=== PATIENT | female | born 1990 | race African-American/Black ===

== ENCOUNTER 2018-03-04 15:24 | Inpatient (IN) | payer MEDICARE ==
[~2018-03-04] VITALS: Ht 157.5 cm; Wt 80.3 kg
--- NOTE | ~2018-03-04 | MORECARE ---
CASE MANAGEMENT DISCHARGE SUMMARY PATIENT: LAMONTE SALAZAR UNIT: [id number] ADM DATE: 03/04/18 AGE: 28 : [birth year] SEX: F ROOM/BED: D.[facility] AUTHOR: CASE, BULK RECEIVER PHYSICIAN: REFERRING PHYSICIAN: WILLY ACIN MD DATE OF SERVICE: 03/04/18 Discharge Plan Patient Name: LAMONTE SALAZAR Facility: [facility]:[place] : 1990 Planned Disposition: Home Anticipated Discharge Date: Discharge Date: Expected LOS: Initial Reviewer: [id number] Initial Review Date: 03/06/2018 Generated: 03/06/18 10:39 am DCPIA - Discharge Planning Initial Assessment Updated by [email or web address]: Edda Ibarra on 03/06/18 9:39 am * Is the patient Alert and Oriented? Yes * How many steps to enterexit or inside your home? ramp * PCP Dr. Calderon Bustillo * Pharmacy [facility] * Preadmission Environment Home with Family * ADLs Independent * Equipment None * Verbal permission to speak to the caregivers and representatives has been obtained from the patient. Yes * Community resources currently utilized None * Please name any agencies selected above. [facility] ([facility]) MWF @ 0715 * Additional services required to return to the preadmission environment? No * Can the patient safely return to the preadmission environment? Yes * Has this patient been hospitalized within the prior 30 days at any hospital? No Patient Name: LAMONTE SALAZAR Page [phone] All edits/amendments must be made on the electronic document DICTATION DATE: 03/06/18938 OVERHEAD LINE WORKER: 03/06/1839 RPT#: [id number] DC DATE: STATUS: ADM IN [facility] [address] [place] [address] END OF REPORT
--- NOTE | ~2018-03-04 | OP ---
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 OPERATION PERFORMED: Insertion of HemoSplit dialysis catheter via the left internal jugular vein under ultrasound as well as fluoroscopic guidance followed by ligation of left arm AV fistula with excision of ruptured segment. SURGEON: Morgan Kirkland MD ANESTHESIA: General endotracheal per [employer] DATABASE DEVELOPER. PREOPERATIVE NOTE: Lamonte Sandhu is a 28-year-old -[place]er female with lupus erythematosus and end-stage renal disease. She is on chronic hemodialysis in [place] on Mondays, Wednesdays, and Fridays, I believe. She is about 30 days' status right now, and during her , had worsening aneurysmal dilatation of her left arm AV fistula and it was not addressed due to her . She did not have a fistulogram until of last week at [facility], where Dr. Lang found that she had an almost total occlusion of the swing segment of her translocated basilic vein fistula. He was able to cross the stenosis with a wire and not able to cross it with the angioplasty balloon catheter that was available to him. She was referred to me and I saw her on in my office in the afternoon and I recommended that she be hospitalized, so that she go to the operating room the following morning, where I planned to do a fistulogram and try to save her fistula. At that time, she was not in danger of imminent rupture. There was no skin necrosis, although the skin over the larger and more proximal cannulation aneurysm was shiny and looked tenuous. Note, THE PATIENT IS ALLERGIC TO IODINE AND IODINATED CONTRAST and requires premedication as per protocol for iodine contrast allergies. The patient stated that she was going to pick out hand her baby at [facility] on Tuesday and did not want to go into the hospital until next week, so the best I could do at that time was schedule her for an elective operation on Tuesday. She presented however to the Emergency Room on Tuesday evening with a swollen and painful arm. On the telephone, I was told there was no active bleeding and it was my impression that she most likely thrombosed her fistula, but possibly might still have some flow and I planned to bring her back to the operating room this morning. This morning, I find the patient with some oozing of blood from an area of necrotic skin overlying the larger aneurysm. She is now obviously in danger of impending rupture and needs emergent surgery. In the OR, general endotracheal anesthesia was administered and she was prepped and draped in sterile manner. I used ultrasound guidance as well as fluoroscopy OPERATIVE REPORT [id number] LAMONTE SANDHU to insert a tunneled 23-cm HemoSplit catheter and place its tip deep in the right atrium. It was tunneled over the clavicle from the left infraclavicular space. Both lumens were accessed, aspirated, and returned blood freely. They were then flushed with saline solution and heparin locked with dilute heparin and saline solution, clamped, and capped. The catheter was sutured to the skin near the entry site with 2-0 Prolene and the cervical incision was closed with interrupted inverted 3-0 Vicryl. That incision was then sealed with Dermabond glue and Maxorb Ag and dressed with Tegaderm with Cavilon skin prep. The patient was then exposed and prepared for the second phase of the operation, which was to be ligation of her fistula. During the prep, the aneurysm ruptured and there was a brief massive hemorrhage until the surgical OR tech applied proper digital compression and quite accurately saved the patient, who could have exsanguinated in seconds. The arm was then held up and a sterile pneumatic tourniquet was applied to the upper arm, and after inflation, active bleeding from the arm ceased. A large amount of clot was expressed from the ruptured fistula, and on closer inspection, we could see there was a hole in her arm at the site of rupture, which was roughly an inch in diameter. Quite a large rupture with quite a large high pressure system beneath certainly could have led to rapid exsanguination. We completed the patient's draping and then I made an incision at the antecubital space along the old scar and exposed the translocated basilic vein and dissected down to the arterial anastomosis. There, it was ligated with #0 Vicryl. It was transected and a portion was excised. The proximal portion was backbleeding and I made an incision around the area of rupture and dissected the overlying skin from it and dissected it circumferentially, ligated it, divided it, and resected a portion. This was sent for routine pathology. The patient's wounds were irrigated with saline and dilute gentamicin solution. Additional protamine was given intraoperatively to help reduce the effects of heparin drip which she had been on overnight. The wounds were then closed with interrupted inverted 3-0 Vicryl and surgical mattie. Doppler examination demonstrated flow in the brachial artery above and below the anastomosis and at the wrist. A sterile compression dressing was applied to the patient's arm. The deflated tourniquet of course was removed. The patient then was awakened, extubated, and taken to the intensive care unit. Blood was obtained for type and crossmatch. Two units of blood were to be transfused as soon as they were available in ICU. PLAN: The patient will obviously need long-term dialysis access in a few weeks from now. When she has recovered from this episode, she should be returned to the operating room and a new graft or fistula placed in the right arm. Note, during the HemoSplit placement phase, I did examine the right internal jugular vein with ultrasound and noted it to be quite small at the level of the clavicle and I think it is nearly, if not completely, occluded or sclerotic from multiple prior tunneled central venous dialysis catheters. On the left side, the vein was quite large and did not appear to be sclerotic, although I did see some scars and I suspect she has had more than one catheter previously on that side. TRANSINT:[id number] Voice Confirmation ID: [id number] DOCUMENT ID: [id number] OPERATIVE REPORT [id number] LAMONTE SANDHU JAMES MD at 2205 CC: SEAN LANG MD [id number] DICTATION DATE: 03/05/18 1410 SENIOR SALES OPERATIONS MANAGER: 03/05/18 1646 DIS IN 03/07/18 [facility] [address] [place] [address]
[~2018-03-04 15:24] MED LIST: CATAPRES0.3 MG PO; HYDRALAZINE HCL50 MG PO; KEFLEX250 MG PO; LASIX80 MG PO; MACROBID100 MG PO; NIFEDIPINE ER90 MG PO; NORCO 10/325 TA1 TA1 PO; NORVASC5 MG PO; PHOSLO667 MG PO; PLAQUENIL200 MG PO; PLAVIX75 MG PO; PREDNISONE10 MG PO; PREDNISONE20 MG PO; PREDNISONE5 MG PO; PROCARDIA10 MG PO; RENVELA800 MG PO; ROCALTROL0.25 MCG PO; ROCALTROL0.5 MCG PO; ROCALTROL1 MCG/ML PO; SINEQUAN25 MG PO; TOPROL XL100 MG PO; TUMS500 MG; TUMS500 MG PO; TYLENOL ARTHRI650 MG PO; ULTRAM50 MG PO; VICODIN PO
[2018-03-05] VITALS (17 sets, daily range): BP systolic 124–194; BP diastolic 78–109; BMI 32.6
[2018-03-05 04:49] LABS: BASOPHILS 0.1 % (0-2); EOSINOPHILS 2.4 % (0-7); HEMATOCRIT 27.9 % (36.0-48.0); HEMOGLOBIN 9.3 g/dL (12-16); IMMATURE GRANULOCYTES 0.2 % (0-5); LYMPHOCYTES 18.2 % (15-50); MCH 28.3 pg (26.0-34.0); MCHC 33.3 g/dL (31.0-37.0); MCV 84.8 fL (80.0-100.0); MEAN PLATELET VOLUME 9.4 fL (7.4-10.4); MONOCYTES 5.6 % (2-11); NEUTROPHILS 73.5 % (40-80); PLATELET COUNT 173 10x3/uL (130-400); RBC 3.29 10x6/uL (4.00-5.40); RDW 15.4 % (11.5-14.5); WBC 8.2 10x3/uL (4.8-10.8)
[2018-03-05 05:24] LABS: ANION GAP 23.9 mmol/L (8-16); CARBON DIOXIDE 21.9 mmol/L (21.0-32.0); CREATININE - SERUM 17.8 mg/dL (0.6-1.3); MAGNESIUM - SERUM 2.6 mg/dL (1.8-2.4); POTASSIUM - SERUM 4.8 mmol/L (3.5-5.1)
[2018-03-05 05:25] LABS: CALCIUM 6.8 mg/dL (8.5-10.1)
[2018-03-05 08:22] LABS: INR 1.13 (0.85-1.17); PROTIME 14.1 SECONDS (11.6-15.0)
[2018-03-05 08:54] LABS: HEMATOCRIT 29.8 % (36.0-48.0); HEMOGLOBIN 10.1 g/dL (12-16); MCH 28.5 pg (26.0-34.0); MCHC 33.9 g/dL (31.0-37.0); MCV 84.2 fL (80.0-100.0); MEAN PLATELET VOLUME 9.9 fL (7.4-10.4); RBC 3.54 10x6/uL (4.00-5.40); RDW 15.4 % (11.5-14.5); WBC 7.3 10x3/uL (4.8-10.8)
[2018-03-05 10:34] LABS: HCG SERUM NEGATIVE (NEGATIVE)
[2018-03-05 12:34] LABS: BASOPHILS 0.1 % (0-2); EOSINOPHILS 3.3 % (0-7); HEMATOCRIT 25.2 % (36.0-48.0); HEMOGLOBIN 8.5 g/dL (12-16); IMMATURE GRANULOCYTES 0.1 % (0-5); LYMPHOCYTES 22.2 % (15-50); MCH 28.2 pg (26.0-34.0); MCHC 33.7 g/dL (31.0-37.0); MCV 83.7 fL (80.0-100.0); MEAN PLATELET VOLUME 9.9 fL (7.4-10.4); MONOCYTES 5.9 % (2-11); NEUTROPHILS 68.4 % (40-80); PLATELET COUNT 170 10x3/uL (130-400); RBC 3.01 10x6/uL (4.00-5.40); RDW 15.5 % (11.5-14.5)
[2018-03-05 15:02] LABS: HEMATOCRIT 26.8 % (36.0-48.0)
[2018-03-06] VITALS (10 sets, daily range): BP systolic 132–152; BP diastolic 75–94; Ht 157.5 cm; Wt 80.3 kg
[2018-03-06 05:55] LABS: ANION GAP 16.9 mmol/L (8-16); CALCIUM 7.7 mg/dL (8.5-10.1)
[2018-03-06 05:56] LABS: CREATININE - SERUM 11.4 mg/dL (0.6-1.3); POTASSIUM - SERUM 3.9 mmol/L (3.5-5.1)
[2018-03-06 06:49] LABS: BASOPHILS 0.1 % (0-2); EOSINOPHILS 2.5 % (0-7); HEMATOCRIT 29.7 % (36.0-48.0); IMMATURE GRANULOCYTES 0.1 % (0-5); LYMPHOCYTES 12.2 % (15-50); MCH 28.5 pg (26.0-34.0); MCHC 33.7 g/dL (31.0-37.0); MCV 84.6 fL (80.0-100.0); MEAN PLATELET VOLUME 10.2 fL (7.4-10.4); MONOCYTES 5.2 % (2-11); NEUTROPHILS 79.9 % (40-80); RBC 3.51 10x6/uL (4.00-5.40); RDW 15.3 % (11.5-14.5); WBC 7.1 10x3/uL (4.8-10.8)
[2018-03-06 06:53] LABS: PLATELET COUNT 118 10x3/uL (130-400)
[2018-03-07 04:00] VITALS: BP 123/84
[2018-03-07 06:00] LABS: BASOPHILS 0.1 % (0-2); EOSINOPHILS 2.3 % (0-7); HEMATOCRIT 30.3 % (36.0-48.0); HEMOGLOBIN 10.1 g/dL (12-16); IMMATURE GRANULOCYTES 0.2 % (0-5); LYMPHOCYTES 9.7 % (15-50); MCH 28.5 pg (26.0-34.0); MCHC 33.3 g/dL (31.0-37.0); MCV 85.6 fL (80.0-100.0); MEAN PLATELET VOLUME 10.3 fL (7.4-10.4); MONOCYTES 6.8 % (2-11); NEUTROPHILS 80.9 % (40-80); PLATELET COUNT 121 10x3/uL (130-400); RBC 3.54 10x6/uL (4.00-5.40); RDW 15.4 % (11.5-14.5); WBC 8.4 10x3/uL (4.8-10.8)
[2018-03-07 06:22] LABS: ANION GAP 14.3 mmol/L (8-16); CALCIUM 8.6 mg/dL (8.5-10.1); CARBON DIOXIDE 28.5 mmol/L (21.0-32.0); CREATININE - SERUM 9.4 mg/dL (0.6-1.3); POTASSIUM - SERUM 3.8 mmol/L (3.5-5.1)
== END 2018-03-07 11:30 | disposition home or self-care (01) | DRG 252 ==
LOC: D.ER 15:24 → D.EDHOLD 21:35 → D.M2 21:35 → D.CVICU 03-05 13:58 → D.M2 03-06 21:43
PROVIDERS: Internal Medicine Nephrology; Surgery
PROC: B2141ZZ Fluoroscopy of Right Heart using Low Osmolar Contrast (ICD-10-PCS; 2018-03-05)
PROC: 5A1D70Z Performance of Urinary Filtration, Intermittent, Less than 6 Hours Per Day (ICD-10-PCS; 2018-03-05)
PROC: 02H633Z Insertion of Infusion Device into Right Atrium, Percutaneous Approach (ICD-10-PCS; principal; 2018-03-05 11:33)
PROC: 03L80ZZ Occlusion of Left Brachial Artery, Open Approach (ICD-10-PCS; 2018-03-05 11:33)
DX: T82.590A Other mechanical complication of surgically created arteriovenous fistula, initial encounter (principal); N18.6 End stage renal disease; I12.0 Hypertensive chronic kidney disease with stage 5 chronic kidney disease or end stage renal disease; D62 Acute posthemorrhagic anemia; Y83.8 Other surgical procedures as the cause of abnormal reaction of the patient, or of later complication, without mention of misadventure at the time of the procedure; Z99.2 Dependence on renal dialysis; D63.1 Anemia in chronic kidney disease; M32.9 Systemic lupus erythematosus, unspecified

== ENCOUNTER 2018-03-21 10:33 | Outpatient (CLI) | payer MEDICARE ==
[~2018-03-21] VITALS: Ht 157.5 cm; Wt 81.2 kg
[2018-03-21 11:37] LABS: BASOPHILS 0.4 % (0-2); EOSINOPHILS 9.1 % (0-7); HEMATOCRIT 30.4 % (36.0-48.0); HEMOGLOBIN 9.7 g/dL (12-16); IMMATURE GRANULOCYTES 0.1 % (0-5); LYMPHOCYTES 11.1 % (15-50); MCHC 31.9 g/dL (31.0-37.0); MCV 87.9 fL (80.0-100.0); MEAN PLATELET VOLUME 9.4 fL (7.4-10.4); MONOCYTES 6.1 % (2-11); NEUTROPHILS 73.2 % (40-80); RBC 3.46 10x6/uL (4.00-5.40); WBC 6.9 10x3/uL (4.8-10.8)
[2018-03-21 11:39] LABS: PLATELET COUNT 337 10x3/uL (130-400)
[2018-03-21 12:00] LABS: ANION GAP 14.4 mmol/L (8-16); CALCIUM 7.8 mg/dL (8.5-10.1); CARBON DIOXIDE 26.7 mmol/L (21.0-32.0); CREATININE - SERUM 8.5 mg/dL (0.6-1.3); POTASSIUM - SERUM 4.1 mmol/L (3.5-5.1)
[2018-03-21 12:15] LABS: INR 1.13 (0.85-1.17); PROTIME 13.9 SECONDS (11.6-15.0)
[2018-03-21 12:31] LABS: APTT 27.4 SECONDS (22.8-39.4)
[2018-03-21 13:18] VITALS: BP 157/95; Ht 157.5 cm; Wt 81.2 kg
== END 2018-03-21 17:02 | disposition home or self-care (01) ==
LOC: D.OPS 10:33 → EDSTATUS 12:00 → D.OPS 17:02
PROVIDERS: Surgery
DX: N18.6 End stage renal disease (principal); Z53.20 Procedure and treatment not carried out because of patient's decision for unspecified reasons; Z01.812 Encounter for preprocedural laboratory examination

== ENCOUNTER 2018-04-18 08:11 | Day surgery (SDC) | payer MEDICARE ==
[~2018-04-18] VITALS: Ht 157.5 cm; Wt 82.1 kg
[2018-04-18 08:55] LABS: BASOPHILS 0.3 % (0-2); EOSINOPHILS 9.2 % (0-7); HEMATOCRIT 36.1 % (36.0-48.0); HEMOGLOBIN 11.6 g/dL (12-16); IMMATURE GRANULOCYTES 0.2 % (0-5); LYMPHOCYTES 17.8 % (15-50); MCH 27.9 pg (26.0-34.0); MCHC 32.1 g/dL (31.0-37.0); MCV 86.8 fL (80.0-100.0); MEAN PLATELET VOLUME 9.3 fL (7.4-10.4); MONOCYTES 6.4 % (2-11); NEUTROPHILS 66.1 % (40-80); RBC 4.16 10x6/uL (4.00-5.40); RDW 16.1 % (11.5-14.5); WBC 6.1 10x3/uL (4.8-10.8)
[2018-04-18 08:56] LABS: PLATELET COUNT 185 10x3/uL (130-400)
[2018-04-18 09:24] LABS: ANION GAP 19.8 mmol/L (8-16); CALCIUM 7.3 mg/dL (8.5-10.1); CARBON DIOXIDE 21.7 mmol/L (21.0-32.0); CREATININE - SERUM 12.2 mg/dL (0.6-1.3); INR 1.12 (0.85-1.17); POTASSIUM - SERUM 4.5 mmol/L (3.5-5.1)
[2018-04-18 09:25] LABS: APTT 30.5 SECONDS (22.8-39.4)
[2018-04-18] MEDS ORDERED: NIFEDIPINE60 MG/BOTT PO (11:29)
[2018-04-18] MEDS ORDERED: XANAX2 MG PO (11:32)
[2018-04-18] MEDS ORDERED: CELEXA20 MG PO (11:33)
[2018-04-18 11:54] VITALS: BP 192/116; Ht 157.5 cm; Wt 82.1 kg
== END 2018-04-18 16:35 | disposition home or self-care (01) ==
LOC: D.OPS 08:11
PROVIDERS: Internal Medicine Nephrology
DX: N18.9 Chronic kidney disease, unspecified (principal); Z53.20 Procedure and treatment not carried out because of patient's decision for unspecified reasons; Z01.812 Encounter for preprocedural laboratory examination

== ENCOUNTER 2018-05-16 05:06 | Day surgery (SDC) | payer MEDICARE ==
[~2018-05-16] VITALS: Ht 160 cm; Wt 79.4 kg
--- NOTE | ~2018-05-16 | OP ---
PATIENT NAME: LAMONTE SANDHU MEDICAL RECORD: [id number] :86 LOCATION:SHAHNAZ ADMISSION DATE: SURGEON: MORGAN KIRKLAND MD DATE OF OPERATION: 05/16/2018 REFERRING PHYSICIAN: Quentin Ramirez MD PREOPERATIVE DIAGNOSES: End-stage renal disease and dependence on hemodialysis, systemic lupus erythematosus, loss of dialysis access - her left internal jugular tunneled dialysis catheter fell out last Tuesday spontaneously and her left arm arteriovenous fistula ruptured and was ligated back in the summer. OPERATION PERFORMED: Creation of a Tony type brachiobasilic arteriovenous fistula in the left arm and with that as the first of the two planned operations towards creation of a brachial artery to translocated basilic vein AV fistula, also fluoroscopic and ultrasound-guided insertion of a 23 cm HemoSplit tunneled dialysis catheter via the left internal jugular vein. SURGEON: Morgan Kirkland MD PREOPERATIVE NOTE: Ms. Sandhu is an unfortunate 28-year-old -[place] female with end-stage renal disease and lupus. Last summer, she ruptured and infected pseudoaneurysm in her left forearm fistula, which was necessarily ligated and she has been dialyzing with a catheter, but it fell out last Tuesday. She is finally brought to the operating room with plans to create a fistula in her left arm and replace her tunneled dialysis catheter. Under general anesthesia, the patient was placed on the operating table, prepped and draped in a sterile manner. I used ultrasound to examine the veins in her left arm using a venous tourniquet and topical nitroglycerin. I identified the basilic vein as potential for dialysis access and made an incision, through which the brachial artery and basilic vein at the level of the antecubital space were exposed and isolated. The artery was controlled with doubly looped Silastic tapes. The vein was ligated distally, divided, and bevelled, flushed with heparinized saline and treated with topical papaverine. The artery was opened and flushed with heparinized saline and an end-to-side vein to artery anastomosis then completed with running 7-0 Prolene. When completed and the occluding loops were released, excellent flow developed in the fistula and the suture line was hemostatic. The wound was irrigated with saline and then closed with interrupted 3-0 Vicryl and then running intracuticular 4-0 Monocryl and Dermabond glue. It was dressed in the usual manner with Maxorb Ag, Tegaderm, and Cavilon skin prep. We will plan to return the patient to the operating room in about 4 weeks if this fistula remains open and the vein dilates so that we can do a translocation. I then used ultrasound to locate the left internal jugular vein. It was of normal caliber and fully compressible. I made an incision at the base of the neck and under ultrasound guidance, inserted a needle and guidewire and advanced the guidewire into the right atrium under fluoroscopy, dilators were passed and then a peel-away introducer sheath inserted. I chose a 23 cm HemoSplit, made an incision beneath the clavicle and pulled the catheter from the infraclavicular incision through a subcutaneous tunnel up to the cervical wound and then inserted it through the peelaway sheath positioning the catheter tip in the OPERATIVE REPORT [id number] LAMONTE SANDHU right atrium. This necessitated passing the catheter over a guide wire. Both lumens of the catheter were accessed and aspirated, free return of blood from each was confirmed, after which they were then flushed with saline and then dilute heparin lock solution, clamped and capped. The catheter was sutured to the skin at the entry site with 2-0 Prolene and a standard dressing including a chlorhexidine disc was applied. The cervical incision was closed with interrupted inverted 3-0 Vicryl and Dermabond glue and dressed with Maxorb Ag, Tegaderm, and Cavilon skin prep. The patient then was awakened and taken to the recovery room. PLAN: The patient will be discharged to home to dialyze tomorrow with her new internal jugular vein tunneled dialysis catheter, I will plan to do the translocation procedure in about 4 weeks. TRANSINT:[id number] Voice Confirmation ID: [id number] DOCUMENT ID: [id number] MORGAN KIRKLAND MD CC: [id number] DICTATION DATE: 05/25/181618 METAL MINER BLASTING: 05/25/182299 [facility] 05/16/18 [facility] [address] [id number]
[~2018-05-16 05:06] MED LIST changes: +CELEXA20 MG PO; +NIFEDIPINE60 MG/BOTT PO; +XANAX2 MG PO
[2018-05-16 05:34] LABS: BASOPHILS 0.2 % (0-2); EOSINOPHILS 11.4 % (0-7); HEMOGLOBIN 12.1 g/dL (12-16); IMMATURE GRANULOCYTES 0.1 % (0-5); LYMPHOCYTES 13.1 % (15-50); MCH 27.8 pg (26.0-34.0); MCHC 33.6 g/dL (31.0-37.0); MCV 82.8 fL (80.0-100.0); MONOCYTES 5.7 % (2-11); NEUTROPHILS 69.5 % (40-80); PLATELET COUNT 187 10x3/uL (130-400); RBC 4.35 10x6/uL (4.00-5.40); RDW 16.6 % (11.5-14.5); WBC 8.4 10x3/uL (4.8-10.8)
[2018-05-16 06:12] LABS: ANION GAP 23.2 mmol/L (8-16); APTT 28.9 SECONDS (22.8-39.4); CARBON DIOXIDE 20.1 mmol/L (21.0-32.0); CREATININE - SERUM 13.1 mg/dL (0.6-1.3); INR 1.12 (0.85-1.17); POTASSIUM - SERUM 5.3 mmol/L (3.5-5.1)
[2018-05-16 06:14] LABS: CALCIUM 6.8 mg/dL (8.5-10.1)
[2018-05-16 07:18] VITALS: BP 109/58; Ht 160 cm; Wt 79.4 kg
== END 2018-05-16 16:40 | disposition home or self-care (01) ==
LOC: D.OPS 05:06
PROVIDERS: Surgery
DX: I12.0 Hypertensive chronic kidney disease with stage 5 chronic kidney disease or end stage renal disease (principal); N18.6 End stage renal disease; Z99.2 Dependence on renal dialysis; M32.9 Systemic lupus erythematosus, unspecified; Z01.812 Encounter for preprocedural laboratory examination

== ENCOUNTER 2018-08-15 07:00 | Day surgery (SDC) | payer MEDICARE ==
[~2018-08-15] VITALS: Ht 157.5 cm; Wt 80.9 kg
--- NOTE | ~2018-08-15 | HP ---
PATIENT: LAMONTE SALAZAR MEDICAL RECORD: [id number] ACCOUNT: [id number] LOCATION:SHAHNAZ : 86 ADMISSION DATE: 08/15/18 PCP: AQUILINO AGOSTO MD HISTORY AND PHYSICAL EXAMINATION This is a patient of Dr. Ramirez. She has lupus and end-stage renal disease and is dependent on hemodialysis. She had had a right brachial artery to basilic vein AV fistula created some time ago and she is to be returned to the operating room on 08/15 for translocation. Her history and physical is unchanged from that recorded in my office note and the interested reader is further referred to Dr. Ramirez's entry. TRANSINT:[id number] Voice Confirmation ID: [id number] DOCUMENT ID: [id number] MORGAN KIRKLAND MD CC: [id number] DICTATION DATE: 08/25/18 1055 DIRECTOR GEOPHYSICAL LABORATORY: 08/25/[address] [facility] 08/15/18 [id number] [place] [address]
[2018-08-15 07:32] LABS: BASOPHILS 0.4 % (0-2); EOSINOPHILS 4.3 % (0-7); HEMATOCRIT 30.2 % (36.0-48.0); IMMATURE GRANULOCYTES 0.2 % (0-5); LYMPHOCYTES 18.8 % (15-50); MCH 27.1 pg (26.0-34.0); MCHC 33.1 g/dL (31.0-37.0); MCV 81.8 fL (80.0-100.0); MEAN PLATELET VOLUME 9.2 fL (7.4-10.4); MONOCYTES 6.1 % (2-11); NEUTROPHILS 70.2 % (40-80); PLATELET COUNT 153 10x3/uL (130-400); RBC 3.69 10x6/uL (4.00-5.40); WBC 5.1 10x3/uL (4.8-10.8)
[2018-08-15 07:41] LABS: APTT 32.6 SECONDS (22.8-39.4); INR 1.14 (0.85-1.17); PROTIME 14.1 SECONDS (11.6-15.0)
[2018-08-15 07:49] VITALS: Ht 157.5 cm; Wt 80.9 kg
[2018-08-15 08:04] LABS: ANION GAP 18.2 mmol/L (8-16); CARBON DIOXIDE 23.4 mmol/L (21.0-32.0); CREATININE - SERUM 7.8 mg/dL (0.6-1.3); POTASSIUM - SERUM 3.6 mmol/L (3.5-5.1)
[2018-08-15 08:07] LABS: CALCIUM 6.7 mg/dL (8.5-10.1)
--- NOTE | 2018-08-15 08:43 | NUR ---
PT HAD CRITICAL LAB OF [facility]. CALLED OVER TO SURGERY TO GET A HOLD OF DR. KIRKLAND. PATRICIA SAID DR. KIRKLAND WAS NOT BACK THERE. PATRICIA SAID THAT HE WOULD LET DR. KIRKLAND KNOW THADDEUS. I PAGED DR. MIRZA FOR NEPHROLOGY TO INFORM HIM OF CRITICAL LAB VALUE. WAITING FOR RETURN CALL FROM DR. CAIN (ON-CALL FOR DR. LANG)
[2018-08-15] MEDS ORDERED: HYDROCODON-ACE1 EAC7 PO (11:54)
--- NOTE | 2018-08-16 21:11 | OP ---
PATIENT NAME: LAMONTE SANDHU MEDICAL RECORD: [id number] :86 LOCATION:SHAHNAZ ADMISSION DATE: SURGEON: MORGAN KIRKLAND MD DATE OF OPERATION: 08/15/2018 REFERRING PHYSICIAN: Dr. Ramirez. PREOPERATIVE DIAGNOSES: End-stage renal disease, dependence on hemodialysis, hypertension and systemic lupus erythematosus. POSTOPERATIVE DIAGNOSES: End-stage renal disease, dependence on hemodialysis, hypertension and systemic lupus erythematosus. OPERATION PERFORMED: Second stage creation of right brachial artery to translocated basilic vein AV fistula. SURGEON: Morgan Kirkland MD ANESTHESIA: General per PIZZA CHEF with LMA. PREOPERATIVE NOTE: Ms. Sandhu is a 28-year-old -[place] female from [place], [place]. She is on dialysis with a catheter and needs long-term access. She is brought to the OR now to complete construction of a brachial to translocated basilic vein AV fistula. She has an established Tony fistula there and it is to be converted today. DESCRIPTION OF PROCEDURE: Under general anesthesia, the patient was prepped and draped in sterile manner. A long incision was made from axilla to antecubital space and the basilic vein was mobilized from its arterial anastomosis to the axilla. It was mobilized and tributaries divided between 3-0 Vicryl ligatures and Hemoclips. The vein was treated frequently with topical papaverine. The vein was clamped and divided and bevelled distally near the arterial anastomosis. It was then flushed with heparinized saline and placed in a very superficial anterior lateral subcutaneous tunnel to make it accessible. The continuity was restored with an end-to-end anastomosis done with running 7-0 Prolene and when completed and the occluding clamps were released, excellent flow established immediately within the fistula. Hemostasis at the suture line was adequate, although there was continuous oozing from the wound and soft tissues. This was controlled by administering 20 mcg of DDAVP intravenously at the end of the operation. The wound was irrigated with saline and irrigated and infiltrated with 0.25% Marcaine without epinephrine. The wound was then closed without the use of a drain approximating subcutaneous tissues with interrupted inverted 3-0 Vicryl and skin was closed with a running 4-0 Stratafix. The skin was sealed with glue and dressed with Maxorb AG and Tegaderm with Cavilon skin prep. I then wrapped the arm with a 4-inch Rony and applied a snug certainly not too tight 4-inch Coban wrap. She was awakened and taken to the recovery room. In the recovery room, she has a good audible bruit over the upper arm and has had no bleeding or bleeding through the dressing. PLAN: She will go home today with a prescription for [place] 5/325. She can take 1 or 2 p.o. every 4 hours p.r.n. pain. She is to continue her usual dialysis schedule and her home medications. She is to return to see me in my office next week. We will ask the dialysis unit to remove the outer wrap of her dressing OPERATIVE REPORT [id number] LAMONTE SANDHU tomorrow at dialysis, but leave the underlying Tegaderm dressing intact. I will remove it when she sees me in the office. She is to resume activities as tolerated. She should keep her operative site and dressing dry and clean. TRANSINT:[id number] Voice Confirmation ID: [id number] DOCUMENT ID: [id number] MORGAN KIRKLAND MD at 2111 CC: [id number] DICTATION DATE: 08/15/18 1203 ICT PROGRAMMER: 08/15/18 1245 [facility] 08/15/18 [id number] [place] [address]
== END 2018-08-15 13:05 | disposition home or self-care (01) ==
LOC: D.OPS 07:00
PROVIDERS: Surgery
DX: I12.0 Hypertensive chronic kidney disease with stage 5 chronic kidney disease or end stage renal disease (principal); N18.6 End stage renal disease; Z99.2 Dependence on renal dialysis; M32.9 Systemic lupus erythematosus, unspecified; Z01.812 Encounter for preprocedural laboratory examination